=== PATIENT | female | born 1985 | race Caucasian/White ===

== ENCOUNTER → 2017-09-07 | Outpatient (CLI) | payer OTHER, BC ==
[2017-09-07 10:07] LABS: HCT 39.8 % (34.0-46.0); HGB 12.8 gm/dL (11.4-16.0); MCH 31.3 pg (25.0-35.0); MCHC 32.1 g/dL (31.0-37.0); MCV 97.5 fL (80.0-100.0); Mean Platelet Volume 6.4; Platelet Count 363 k/uL (150-450); RBC 4.08 m/uL (3.80-5.40); RDW 12.5 % (11.5-15.5); WBC 8.5 k/uL (3.8-10.6)
== END | disposition home or self-care (01) ==
LOC: LABWHC1 09:01
PROVIDERS: ATTEND Obstetrics & Gynecology
DX: Z34.82 Encounter for supervision of other normal pregnancy, second trimester (principal)
CPT/HCPCS: 36415; 82950; 85027

== ENCOUNTER → 2017-09-11 | Outpatient (CLI) | payer OTHER, BC ==
[2017-09-11 12:59] LABS: Glucose 3 Hour, Gest 115 mg/dL
== END | disposition home or self-care (01) ==
LOC: LABWHC1 08:55
PROVIDERS: ATTEND Obstetrics & Gynecology
DX: O99.810 Abnormal glucose complicating pregnancy (principal); Z3A.00 Weeks of gestation of pregnancy not specified
CPT/HCPCS: 36415; 82951; 82952

== ENCOUNTER 2017-09-26 10:42 | Outpatient (CLI) | payer OTHER, BC ==
[2017-09-26 11:16] VITALS: BP 116/67; PULSE 109; RESP 18; TEMP 97
[2017-09-26 11:17] LABS: Appearance,Urine Cloudy (Clear); Bilirubin,Urine Negative (Negative); Blood,Urine Negative (Negative); Color,Urine Yellow; Glucose,Urine (UA) Negative (Negative); Ketones,Urine 2+ (Negative); Leukocyte Esterase,Urine Small (Negative); Mucus,Urine Moderate /hpf; PH, Urine 6.5 (5.0-8.0); Protein,Urine Trace (Negative); RBC,Urine 1 /hpf (0-5); Specific Gravity,Urine 1.021 (1.001-1.035); Squamous Epithelial Cell,Urine 18 /hpf (0-4); Urobilinogen,Urine <2.0 mg/dL (<2.0); WBC,Urine 4 /hpf (0-5)
--- NOTE | 2017-09-26 16:53 | P.MSEPDOC ---
Presenting Problems - Arrival Data Date of Arrival on Unit: 09/26/17 Time of Arrival on Unit: 10:40 Mode of Transport: Ambulatory - Complaint OB-Reason for Admission/Chief Complaint: Headache, Visual Disturbances, Observation/Evaluation, Elevated Blood Pressure Comment: high BP at work with vision changes and headache, tingling hands, symptoms resolved at present other than mild headache 10/06 Medical History - Information : 3 Para: 2 Term: 2 : 0 Abortions: Spontaneous or Elective: 0 Number of Living Children: 2 - Gestational Age Gestational Age by NIMO (wks/days): 28 Weeks and 4 Days - History Comment: term vag deliveries x 2 Review of Systems - Review of Systems Constitutional: No problems Breast: No problems ENT: No problems Cardiovascular: No problems Respiratory: No problems Gastrointestinal: No problems Genitourinary: No problems Musculoskeletal: No problems Neurological: No problems Skin: No problems Vital Signs - Temperature Temperature: 97 F Temperature Source: Temporal Artery Scan - Pulse Left Sitting Brachial Pulse Rate: 109 Pulse Assessment Method: Automatic Cuff - Respirations Respiratory Rate: 18 Oxygen Delivery Method: Room Air O2 Sat by Pulse Oximetry: 99 - Blood Pressure Left Arm Sitting Blood Pressure: 116/67 Blood Pressure Mean: 83 Blood Pressure Source: Automatic Cuff Medical Screen Scoring (Pre) - Cervical Exam Dilation: Exam Deferred Effacement: Exam Deferred - Uterine Contractions Frequency: N/A Duration: N/A Intensity: N/A - Maternal Vital Signs Maternal Temperature: N/A Maternal Blood Pressure: N/A Signs of Preeclampsia: Headache = 1 Maternal Respirations: N/A - Pain Assessment Pain Location and Character: Head Pain Scale Used: Numeric (1 - 10) Pain Intensity: 3 Pain Description: Aching - Maternal Trauma Maternal Trauma: N/A - Assessment Baseline FHR: 135 Heart Rate - NICHD Category: Category I (Normal) = 0 NST: Reactive Position: N/A Station: N/A - Total Score Total Score (Pre): 1 - Level of Risk Level of Risk: Low (0-5) Physician Notification (Pre) - Physician Notified Physician Notified Date: 09/26/17 Physician Notified Time: 11:00 Physician/Practitioner Notifed:: Dr Srinivasan Spoke With: dr Srinivasan New Order Received: Yes - Notification Comment Comment: Send UA, may be discharged home if results WNL Physician Notification (Post) - Physician Notified Physician Notified Date: 09/26/17 Physician Notified Time: 11:25 Physician/Practitioner Notified:: Dr Srinivasan Spoke With: Dr Srinivasan New Order Received: Yes - Notification Comment Comment: Discharge home, increase po fluids. Pt to return with continued or increased symptoms. Disposition - Disposition OB Disposition: Discharge to home Discharge Date: 09/26/17 Discharge Time: 11:33 I agree with the RN Medical Screening Exam: Yes Risk & Benefit of care provided described in d/c instruction: Yes Diagnosis: OTHER SPECIFIED COMPLICATIONS OF LABOR AND DELIVERY
== END 2017-09-26 11:33 | disposition home or self-care (01) ==
LOC: FBPOP 10:42
PROVIDERS: ATTEND Obstetrics & Gynecology
DX: O26.893 Other specified pregnancy related conditions, third trimester (principal); H53.9 Unspecified visual disturbance; R51 Headache; R03.0 Elevated blood-pressure reading, without diagnosis of hypertension; Z3A.28 28 weeks gestation of pregnancy
CPT/HCPCS: 59025; 81001; 99215

== ENCOUNTER 2017-10-08 12:07 | Outpatient (CLI) | payer OTHER, BC ==
[2017-10-08 13:08] VITALS: RESP 16; TEMP 96.8
[2017-10-08 13:34] LABS: Basophils % (A) 0 %; Eosinophils # (A) 0.5 k/uL (0-0.7); Eosinophils % (A) 5 %; HCT 33.7 % (34.0-46.0); HGB 11.7 gm/dL (11.4-16.0); Lymphocytes # (A) 1.3 k/uL (1.0-4.8); Lymphocytes % (A) 12 %; MCH 30.8 pg (25.0-35.0); MCHC 34.9 g/dL (31.0-37.0); Mean Platelet Volume 6.5; Monocytes # (A) 0.5 k/uL (0-1.0); Monocytes % (A) 5 %; Neutrophils # (A) 8.1 k/uL (1.3-7.7); Neutrophils % (A) 76 %; Platelet Count 363 k/uL (150-450); RBC 3.81 m/uL (3.80-5.40); RDW 12.6 % (11.5-15.5); WBC 10.6 k/uL (3.8-10.6)
[2017-10-08 13:35] LABS: ALT 21 U/L (9-52); AST 22 U/L (14-36); Blood Urea Nitrogen 7 mg/dL (7-17); LDH 411 U/L (313-618); Uric Acid 3.5 mg/dL (3.7-7.4)
[2017-10-08 13:42] LABS: MCV 88.4 fL (80.0-100.0)
[2017-10-08 13:58] LABS: Appearance,Urine Cloudy (Clear); Bacteria,Urine Rare /hpf; Bilirubin,Urine Negative (Negative); Blood,Urine Negative (Negative); Color,Urine Yellow; Glucose,Urine (UA) Negative (Negative); Ketones,Urine Negative (Negative); Leukocyte Esterase,Urine Negative (Negative); Mucus,Urine Occasional /hpf; Nitrite,Urine Negative (Negative); Protein,Urine Negative (Negative); RBC,Urine 1 /hpf (0-5); Specific Gravity,Urine 1.016 (1.001-1.035); Squamous Epithelial Cell,Urine 8 /hpf (0-4); Urobilinogen,Urine <2.0 mg/dL (<2.0); WBC,Urine 1 /hpf (0-5)
[2017-10-08 14:04] VITALS: BP 119/69; PULSE 99
--- NOTE | 2017-10-09 06:11 | P.MSEPDOC ---
Presenting Problems - Arrival Data Date of Arrival on Unit: 10/08/17 Time of Arrival on Unit: 12:07 Mode of Transport: Ambulatory - Complaint OB-Reason for Admission/Chief Complaint: Headache, Elevated Blood Pressure Comment: headache and bp 138/90 while at work this am Medical History - Information : 3 Para: 2 Term: 2 : 0 Abortions: Spontaneous or Elective: 0 Number of Living Children: 2 - Gestational Age Gestational Age by NIMO (wks/days): 30 Weeks and 2 Days Review of Systems - Review of Systems Constitutional: No problems Breast: No problems ENT: No problems Cardiovascular: No problems Respiratory: No problems Gastrointestinal: No problems Genitourinary: No problems Musculoskeletal: No problems Neurological: No problems Skin: No problems Vital Signs - Temperature Temperature: 96.8 F Temperature Source: Temporal Artery Scan - Pulse Right Sitting Pulse Rate: 99 Pulse Assessment Method: Automatic Cuff - Respirations Respiratory Rate: 16 Oxygen Delivery Method: Room Air - Blood Pressure Right Arm Blood Pressure: 119/69 Blood Pressure Mean: 85 Blood Pressure Source: Automatic Cuff Medical Screen Scoring (Pre) - Cervical Exam Dilation: Exam Deferred Effacement: Exam Deferred - Maternal Vital Signs Maternal Temperature: N/A Maternal Blood Pressure: N/A Signs of Preeclampsia: Headache = 1 Maternal Respirations: N/A - Pain Assessment Pain Location and Character: Head Pain Scale Used: Numeric (1 - 10) Pain Intensity: 3 Pain Description: *Acute Pain Frequency: Intermittent Pain Duration Units: Hours Pain Behavior: Vocalization - Maternal Trauma Maternal Trauma: N/A - Assessment Baseline FHR: 125 Heart Rate - NICHD Category: Category I (Normal) = 0 NST: Reactive Position: N/A Station: N/A - Total Score Total Score (Pre): 1 - Level of Risk Level of Risk: Low (0-5) Physician Notification (Pre) - Physician Notified Physician Notified Date: 10/08/17 Physician Notified Time: 12:51 Physician/Practitioner Notifed:: Zarina Mckeon Order Received: Yes ([facility] labs) Medical Screen Scoring (Post) - Cervical Exam Dilation: Exam Deferred Effacement: Exam Deferred - Uterine Contractions Frequency: N/A - Maternal Vital Signs Maternal Temperature: N/A Maternal Blood Pressure: N/A Signs of Preeclampsia: N/A Maternal Respirations: N/A - Assessment Heart Rate: 125 Heart Rate - NICHD Category: Category I (Normal) = 0 NST: Reactive Position: N/A Station: N/A - Total Score Total Score (Post): 0 - Post Treatment Level of Risk Post Treatment Level of Risk: Low (0-5) Physician Notification (Post) - Physician Notified Physician Notified Date: 10/08/17 Physician Notified Time: 14:02 Physician/Practitioner Notified:: Zarina Mckeon Order Received: Yes (d/c home) Disposition - Disposition OB Disposition: Discharge to home Discharge Date: 10/08/17 Discharge Time: 14:03 I agree with the RN Medical Screening Exam: Yes Risk & Benefit of care provided described in d/c instruction: Yes Diagnosis: HEADACHE (Patient had a evaluation for concerns of hypertension. No evidence of hypertension and preeclampsia labs were all normal. No evidence of maternal or compromise.)
== END 2017-10-08 14:01 | disposition home or self-care (01) ==
LOC: FBPOP 12:07
PROVIDERS: ATTEND Obstetrics & Gynecology
DX: O99.89 Other specified diseases and conditions complicating pregnancy, childbirth and the puerperium (principal); R51 Headache; Z3A.30 30 weeks gestation of pregnancy
CPT/HCPCS: 59025; 81001; 82565; 83615; 84450; 84460; 84520; 84550; 85025; 99215

== ENCOUNTER 2017-12-11 21:15 | Inpatient (IN) | payer OTHER, BC ==
[~2017-12-11 21:15] MED LIST: BUPIVACAINE (PF) 0.25% 30 ML VIAL ONE; SODIUM CHLORIDE 0.9% 100 ML BAG ONE; fentaNYL (PF) 50 MCG/ML 5 ML AMP ONE
[2017-12-11] MEDS ORDERED: OXYTOCIN 10 UNIT/ML 1 ML VIAL IM PRN (21:29)
[2017-12-11] MEDS ORDERED: METHYLERGONOVINE 0.2 MG/ML 1 ML AMP IM PRN (21:29)
[2017-12-11] MEDS ORDERED: LIDOCAINE 1% (PF) 10 MG/ML (30 ML SDV) SQ PRN (21:29)
[2017-12-11] MEDS ORDERED: CARBOPROST TROMETHAMINE 250 MCG/ML 1 ML AMP IM PRN (21:29)
[2017-12-11] MEDS ORDERED: TERBUTALINE 1 MG/ML VIAL SQ PRN (21:29)
[2017-12-11] MEDS ORDERED: OXYTOCIN 20 UNITS/1000 ML NS 1,000 ML IV SCH (21:30)
[2017-12-11] MEDS ORDERED: CLINDAMYCIN 900 MG in DEXTROSE 5% IN WATER 50 ML IVPB STA ×2 (21:33)
[2017-12-11] MEDS: LACTATED RINGERS 1,000 ML IV SCH (22:09)
[2017-12-11 23:05] VITALS: RESP 16
[2017-12-11 23:19] LABS: Basophils % (A) 0 %; Eosinophils # (A) 0.4 k/uL (0-0.7); Eosinophils % (A) 5 %; HCT 36.9 % (34.0-46.0); HGB 12.2 gm/dL (11.4-16.0); Lymphocytes # (A) 1.4 k/uL (1.0-4.8); Lymphocytes % (A) 17 %; MCH 28.8 pg (25.0-35.0); MCV 87.5 fL (80.0-100.0); Monocytes # (A) 0.5 k/uL (0-1.0); Monocytes % (A) 6 %; Neutrophils # (A) 5.7 k/uL (1.3-7.7); Neutrophils % (A) 71 %; Platelet Count 335 k/uL (150-450); RBC 4.22 m/uL (3.80-5.40); RDW 14.1 % (11.5-15.5); WBC 8.1 k/uL (3.8-10.6)
[2017-12-12] MEDS ORDERED: BUTORPHANOL 1 MG/ML 1 ML VIAL IV PRN (03:53)
[2017-12-12] MEDS ORDERED: CLINDAMYCIN 900 MG in DEXTROSE 5% IN WATER 50 ML IVPB SCH ×2 (05:45)
[2017-12-12] MEDS: LACTATED RINGERS 1,000 ML IV SCH (05:56)
--- NOTE | 2017-12-12 06:28 | P.HPOB ---
History of Present Illness H&P Date: 12/12/17 Chief Complaint: Leaking of fluid. This patient is a pleasant 32-year-old 3 para 2 female estimated date of confinement 12/15/2017 estimated gestational age 39-4/7 weeks gestation who is admitted to labor and delivery with spontaneous rupture membranes last evening at approximately 2015 hrs. Patient is admitted by Dr. Chisholm at that time. care has been uncomplicated. She did have concerns at 30 weeks for elevated blood pressures at work however we never were able to document any hypertension in the hospital or in the office and blood pressures have been normal. Patient did have a positive group B strep culture started on antibiotics last evening and was given Pitocin at approximately 2 AM for augmentation. Review of Systems Genitourinary: Reports Menstruation: Reports amenorrhea Past Medical History Past Medical History: Hypertension Additional Past Medical History / Comment(s): Patient has been given a diagnosis of hypertension but no treatment. History of Any Multi-Drug Resistant Organisms: None Reported Additional Past Surgical History / Comment(s): oral implant Past Anesthesia/Blood Transfusion Reactions: No Reported Reaction Past Psychological History: No Psychological Hx Reported Smoking Status: Never smoker Past Alcohol Use History: None Reported Past Drug Use History: None Reported - Past Family History Mother Family Medical History: Hypertension Father Family Medical History: Hypertension Medications and Allergies Home Medications Medication Instructions Recorded Confirmed Type Pnv No.95/Ferrous Fum/Folic AC 1 tab PO DAILY 10/08/17 10/08/17 History [ Multivitamin Tablet] Allergies Allergy/AdvReac Type Severity Reaction Status Date / Time Penicillins Allergy Rash/Hives Verified 12/11/17 21:29 Exam - Vital Signs Vital signs: Vital Signs Temp Pulse Resp BP Pulse Ox 12/11/17 22:00 97.3 F L 100 16 127/78 100 Intake and Output 12/11/17 12/11/17 12/12/17 14:59 22:59 06:59 Intake Total 1100 Balance 1100 Intake: Intake, IV Titration 1100 Amount Clindamycin 900 mg In 100 Dextrose 5% in Water 50 ml @ 100 mls/hr IVPB ONCE STA Rx#:[id number] Lactated Ringers 1,000 ml 1000 @ 125 mls/hr IV .Q8H MAUREEN Rx#:[id number] Other: # Voids 2 Weight 100.698 kg - OBG Physical Exam Abdomen: bowel sounds normal, no diffuse tenderness, no bruit present, no guarding noted, no hepatomegaly, no splenomegaly, no mass Vulva: both: normal Vagina: normal moisture, no discharge Cervix: no lesion, no discharge Uterus: enlarged (Fundal height is consistent with a term .) Results blood work shows she is O group B strep was positive. positive, rubella immune, RPR nonreactive, hepatitis B nonreactive, HIV nonreactive, toxoplasmosis IgG was positive consistent with a past infection, Glucola was 140 with a normal three-hour gtt. Patient's ultrasounds have been normal. Group B strep was positive. Result Diagrams: 12/11/17 22:00 Assessment and Plan Assessment: This is a pleasant 32-year-old 3 para 2 female 39-4/7 weeks gestation admitted to labor and delivery with spontaneous rupture membranes in early labor. Patient has positive group B strep culture. Patient is already on antibiotics and at this time making cervical change. Plan is anticipate vaginal delivery (1) Spontaneous rupture of amniotic membranes Current Visit: Yes Status: Acute Code(s): ZLL7083 - SNOMED Code(s): 091036572 (2) Group B streptococcal carriage complicating Current Visit: Yes Status: Acute Code(s): O99.820 - STREPTOCOCCUS B CARRIER STATE COMPLICATING SNOMED Code(s): 656808490208477 (3) Third trimester Current Visit: Yes Status: Acute Code(s): Z34.93 - ENCNTR FOR SUPRVSN OF NORMAL PREG, UNSP, THIRD TRIMESTER SNOMED Code(s): 20548056
[2017-12-12] MEDS ORDERED: WITCH HAZEL 1 EACH MED..PAD TOPICAL PRN (09:47)
[2017-12-12] MEDS ORDERED: LANOLIN CREAM 5 GM TUBE TOPICAL PRN (09:47)
[2017-12-12] MEDS ORDERED: diphenhydrAMINE 50 MG/ML 1 ML VIAL IVP PRN (09:47)
[2017-12-12] MEDS ORDERED: diphenhydrAMINE 25 MG CAP PO PRN (09:47)
[2017-12-12] MEDS ORDERED: OXYTOCIN 20 UNITS/1000 ML NS 1,000 ML IV SCH (09:47)
[2017-12-12] MEDS ORDERED: SIMETHICONE 80 MG CHEWABLE PO PRN (09:47)
[2017-12-12] MEDS ORDERED: BENZOCAINE/MENTHOL SPRAY 1 GM/SPRAY AEROSOL TOPICAL PRN (09:47)
[2017-12-12] MEDS ORDERED: ZOLPIDEM 5 MG TAB PO PRN (09:47)
[2017-12-12] MEDS ORDERED: BISACODYL 10 MG SUPP RECTAL PRN (09:47)
[2017-12-12] MEDS ORDERED: HYDROCORTISONE 2.5% RECTAL CREAM 30 GM TUBE RECTAL PRN (09:47)
[2017-12-12] MEDS ORDERED: ACETAMINOPHEN TAB 325 MG TAB PO PRN (09:47)
[2017-12-12] MEDS: SENNOSIDES-DOCUSATE SODIUM 1 EACH TAB PO SCH ×2 (11:09→19:46)
--- NOTE | 2017-12-12 12:28 | P.PROBDLV ---
Vaginal Delivery Note - . Vaginal Delivery Note: Normal vaginal delivery viable female Apgars 9 and 9 delivery time is 0926 hours. Please see dictated H&P for intimate details of this patient's admission. Brief summary this is a pleasant 32-year-old 3 para 2 female 39-4/7 weeks gestation who is admitted to labor and delivery with complaints of gush of fluid last evening. Patient started on clindamycin for positive group B strep culture. Patient's labor is augmented at approximately 2:00 this morning. Patient thereafter begins to progress and does get an epidural at 5 cm dilated. Patient's labor quickly progresses thereafter and she gets to complete. Patient pushes the head to the perineum the posterior perineum was supported. We have controlled delivery of the 's head over the intact perineum. Mouth and nares are bulb suctioned. There is a nuchal cord which is reduced. With gentle downward traction we then have deliver the anterior and posterior shoulder and rest this infant's body. This is a vigorous viable female Apgars are 9 and 9 delivery time is 0926 hours. After delivery of the infant the is late on the mother's abdomen. After the cord is done pulsating is doubly clamped and then cut. Placenta is then spontaneously delivered intact. Estimated blood loss is 200 mL. Inspection of perineum shows a small first-degree posterior laceration is repaired with 3-0 Vicryl in the usual fashion. Excellent reapproximation is noted. Infant and mother are stable delivery room. There are no complications. All counts are correct 3.
[2017-12-12] MEDS: IBUPROFEN 600 MG TAB PO PRN (19:46)
[2017-12-13 01:59] VITALS: BP 132/86; PULSE 89; TEMP 98.4
--- NOTE | 2017-12-13 05:59 | P.PNOBGVD ---
Subjective - Subjective Patient reports: Reports appetite normal, Reports voiding normally, Reports pain well controlled, Reports ambulating normally : doing well Objective - Latest Vital Signs Latest vital signs: Vital Signs Temp Pulse Resp BP Pulse Ox 12/13/17 00:00 98.4 F 89 16 132/86 12/12/17 20:00 98.2 F 109 H 16 139/74 12/12/17 16:00 98.5 F 112 H 16 138/81 12/12/17 12:00 97.8 F 98 16 132/76 12/12/17 11:33 98.1 F 101 H 16 136/73 12/12/17 11:03 96.8 F L 103 H 16 136/73 12/12/17 10:33 97.0 F L 97 16 140/71 98 12/12/17 10:18 102 H 16 133/58 98 12/12/17 10:03 114 H 145/70 12/12/17 09:48 98.3 F 107 H 16 144/77 12/12/17 09:33 98.2 F 109 H 16 133/71 Intake and Output 12/12/17 12/12/17 12/13/17 14:59 22:59 06:59 Output Total 700 Balance -700 Output: Urine 550 Estimated Blood Loss 150 Other: # Voids 1 1 2 - Exam Lungs: bilateral: normal Chest: Normal S1, Normal S2 Extremities: Present: normal Abdomen: Present: normal appearance, soft Uterus: Present: normal, firm Assessment and Plan Assessment: Post day #1. Patient is resting without complaints and wishes to go home. Vital signs are stable and she is afebrile. Uterus is firm nontender and she is having normal lochia. My impression is that this is a normal course. Plan is to continue care discharge home later today (1) Spontaneous rupture of amniotic membranes Current Visit: Yes Status: Acute Code(s): CYP9256 - SNOMED Code(s): 018665313 (2) Group B streptococcal carriage complicating Current Visit: Yes Status: Acute Code(s): O99.820 - STREPTOCOCCUS B CARRIER STATE COMPLICATING SNOMED Code(s): 200623935348985 (3) Third trimester Current Visit: Yes Status: Acute Code(s): Z34.93 - ENCNTR FOR SUPRVSN OF NORMAL PREG, UNSP, THIRD TRIMESTER SNOMED Code(s): 84913363
--- NOTE | 2017-12-13 06:03 | P.DS ---
Providers Date of admission: 12/11/17 21:39 Expected date of discharge: 12/13/17 Attending physician: Chandu Srinivasan Primary care physician: Stated None - Discharge Diagnosis(es) (1) Spontaneous rupture of amniotic membranes Current Visit: Yes Status: Acute (2) Group B streptococcal carriage complicating Current Visit: Yes Status: Acute (3) Third trimester Current Visit: Yes Status: Acute Hospital Course: Please see dictated H&P for intimate details of this patient's admission. Brief summary this is a pleasant 32-year-old 3 para 2 female 39-4/7 weeks gestation admitted to labor and delivery with spontaneous rupture membranes. Patient had augmentation of labor also treatment for positive group B strep culture. She was on have a vaginal delivery viable female . Please see dictated delivery note. day #1 patient's felt to be stable for discharge home follow up with me in 6 weeks. Procedures: Normal spontaneous vaginal delivery. Patient Condition at Discharge: Good Plan - Discharge Summary New Discharge Prescriptions: New Ibuprofen [Motrin] 600 mg PO Q6HR PRN #40 tab PRN Reason: Mild Pain Or Fever >= 100.5 No Action Pnv No.95/Ferrous Fum/Folic AC [ Multivitamin Tablet] 1 tab PO DAILY Discharge Medication List Pnv No.95/Ferrous Fum/Folic AC [ Multivitamin Tablet] 1 tab PO DAILY 07/16 [History] Ibuprofen [Motrin] 600 mg PO Q6HR PRN #40 tab 12/13/17 [Rx] Follow up Appointment(s)/Referral(s): Chandu Srinivasan MD [STAFF PHYSICIAN] - 01/23/18 9:30 am Patient Instructions/Handouts: Vaginal Delivery (DC) Activity/Diet/Wound Care/Special Instructions: No intercourse or anything per vagina for 6 weeks. Please call if any fever, chills, excessive vaginal bleeding and/or abdominal pain. Discharge Disposition: HOME SELF-CARE
[2017-12-13] MEDS: IBUPROFEN 600 MG TAB PO PRN (08:51)
--- NOTE | 2017-12-13 10:42 | P.MSEPDOC ---
Presenting Problems - Arrival Data Date of Arrival on Unit: 12/11/17 Time of Arrival on Unit: 21:41 Mode of Transport: Wheelchair - Complaint OB-Reason for Admission/Chief Complaint: Rule Out SROM Comment: SROM clear fluid at 2014 Medical History - Information : 3 Para: 2 Term: 2 : 0 Abortions: Spontaneous or Elective: 0 Number of Living Children: 2 - Gestational Age Gestational Age by NIMO (wks/days): 39 Weeks and 4 Days - History Complications: GBS+ Review of Systems - Review of Systems Constitutional: No problems Breast: No problems ENT: No problems Cardiovascular: No problems Respiratory: No problems Gastrointestinal: No problems Genitourinary: No problems Musculoskeletal: No problems Neurological: No problems Skin: No problems Vital Signs - Temperature Temperature: 98.4 F Temperature Source: Oral - Pulse Right Pulse Rate: 89 Pulse Assessment Method: Automatic Cuff - Respirations Respiratory Rate: 16 Oxygen Delivery Method: Room Air - Blood Pressure Right Arm Blood Pressure: 132/86 Blood Pressure Mean: 101 Blood Pressure Source: Automatic Cuff Medical Screen Scoring (Pre) - Cervical Exam Dilation: 1-3 cm = 1 Membranes: Ruptured = 3 - Uterine Contractions Frequency: N/A Duration: N/A Intensity: N/A - Maternal Vital Signs Maternal Temperature: N/A Maternal Blood Pressure: N/A Signs of Preeclampsia: N/A Maternal Respirations: N/A - Assessment Baseline FHR: 130 Heart Rate - NICHD Category: Category I (Normal) = 0 NST: Reactive - Total Score Total Score (Pre): 4 - Level of Risk Level of Risk: Low (0-5) Physician Notification (Pre) - Physician Notified Physician Notified Date: 12/11/17 Physician Notified Time: 21:41 Physician/Practitioner Notifed:: Dr Chisholm - Notification Comment Comment: Dr Chisholm called. Reported on hx, c/o, fhts, no cntrx, vag exam, GBS+, SROM. orders to admit, start abx, start pitcoin after4 hrs of abx. call with needs, epidural, pitocin started. Disposition - Disposition OB Disposition: Admit Transferred to:: st 7 Discharge Date: 12/11/17 Discharge Time: 21:41 I agree with the RN Medical Screening Exam: Yes Risk & Benefit of care provided described in d/c instruction: Yes Diagnosis: ENCOUNTER FOR FULL-TERM UNCOMPLICATED DELIVERY
[2017-12-13] MEDS: SENNOSIDES-DOCUSATE SODIUM 1 EACH TAB PO SCH (11:54)
== END 2017-12-13 13:32 | disposition home or self-care (01) | DRG 775 ==
LOC: FBPOP 21:15 → 4FBP 21:39
PROVIDERS: ADMIT Obstetrics & Gynecology; ATTEND Obstetrics & Gynecology
PROC: 10E0XZZ Delivery of Products of Conception, External Approach (ICD-10-PCS; principal; 2017-12-12)
PROC: 0HQ9XZZ Repair Perineum Skin, External Approach (ICD-10-PCS; 2017-12-12)
PROC: 00HU33Z Insertion of Infusion Device into Spinal Canal, Percutaneous Approach (ICD-10-PCS; 2017-12-12)
PROC: 3E0R3NZ Introduction of Analgesics, Hypnotics, Sedatives into Spinal Canal, Percutaneous Approach (ICD-10-PCS; 2017-12-12)
DX: O99.824 Streptococcus B carrier state complicating childbirth (principal); O70.0 First degree perineal laceration during delivery; O69.81X0 Labor and delivery complicated by cord around neck, without compression, not applicable or unspecified; O16.4 Unspecified maternal hypertension, complicating childbirth; Z3A.39 39 weeks gestation of pregnancy; Z82.49 Family history of ischemic heart disease and other diseases of the circulatory system; Z88.0 Allergy status to penicillin; Z37.0 Single live birth
CPT/HCPCS: 59025; 84112; 85025; 88307; 99213

== ENCOUNTER 2019-05-17 20:37 | Emergency (ER) | payer BC, OTHER ==
[2019-05-17] MEDS ORDERED: SODIUM CHLORIDE 0.9% 500 ML 500 ML IV ONE (20:57)
[2019-05-17 21:36] LABS: Basophils % (A) 0 %; Eosinophils # (A) 0.4 k/uL (0-0.7); Eosinophils % (A) 4 %; HCT 40.9 % (34.0-46.0); HGB 13.3 gm/dL (11.4-16.0); Lymphocytes # (A) 1.9 k/uL (1.0-4.8); Lymphocytes % (A) 19 %; MCH 31.3 pg (25.0-35.0); MCHC 32.6 g/dL (31.0-37.0); Mean Platelet Volume 6.6; Monocytes # (A) 0.5 k/uL (0-1.0); Monocytes % (A) 4 %; Neutrophils # (A) 7.2 k/uL (1.3-7.7); Neutrophils % (A) 71 %; Platelet Count 332 k/uL (150-450); RBC 4.26 m/uL (3.80-5.40); RDW 13.1 % (11.5-15.5); WBC 10.2 k/uL (3.8-10.6)
[2019-05-17 21:47] LABS: ALT 20 U/L (9-52); AST 22 U/L (14-36); African American GFR (CKD) >90 (>60 ml/min/1.73 sqM); Albumin 3.8 g/dL (3.5-5.0); Alkaline Phosphatase 61 U/L (38-126); Anion Gap 8 mmol/L; Blood Urea Nitrogen 9 mg/dL (7-17); Calcium 9.4 mg/dL (8.4-10.2); Carbon Dioxide 22 mmol/L (22-30); Chloride 105 mmol/L (98-107); Glucose 88 mg/dL (74-99); Non-African American GFR(CKD) >90 (>60 ml/min/1.73 sqM); Sodium 135 mmol/L (137-145); Total Bilirubin 0.3 mg/dL (0.2-1.3); Total Protein 6.7 g/dL (6.3-8.2)
--- NOTE | 2019-05-17 22:27 | US ---
EXAMINATION TYPE: Transabdominal DATE OF EXAM: 05/17/2019 10:10 PM COMPARISON: NONE CLINICAL HISTORY: pain. Bleeding. EXAM PERFORMED: Transabdominal (TA) EXAM MEASUREMENTS: GESTATIONAL AGE / DATING Physician Established: (12 weeks/3 days) EDC: 11/26/2019 Dates by LMP: (12 weeks/3 days) EDC: 11/26/2019 Dates by First Scan: No previous this is first scan Dates by Current Scan for: (13 weeks/3 days) EDC: 11/19/2019 MATERNAL ANATOMY Uterus: 15.2 x 9.5 x 11.1 cm Right Ovary: Obscured by bowel gas. Left Ovary: Obscured by bowel gas. Post CDS / Adnexa: wnl Presence of free fluid: no Presence of corpus luteal cyst: no Presence of subchorionic bleed: Possible hypoechoic area seen near cervix measuring 2.7 x 1.4 x 3.0cm . GESTATION / SURVEY CRL: 7.26cm (13 weeks/3 days) Heart Rate: 163 bpm Rhythm: Normal IMPRESSION: The ultrasound gestational age is 13 weeks and 3 days according to the measurements there is 2.7 x 1. 4 cm hypoechoic area near the cervix that could be a small perigestational hemorrhage and blood clot.
[2019-05-17 22:30] LABS: HCG,Quantitative Serum 42411.1 mIU/mL
--- NOTE | 2019-05-17 22:43 | ED ---
Female Urogenital HPI - General Chief complaint: Vaginal Bleeding Stated complaint: 12 wks , bleeding Time Seen by Provider: 05/17/19 20:55 Source: patient Mode of arrival: ambulatory Limitations: no limitations - History of Present Illness Initial comments: 34 female presenting to the ER for evaluation of bleeding in . Patient states she began developing mild to moderate vaginal bleeding today she states it is bright red. Patient states his symptoms subsided however she just used the bathroom prior to history taking there was a moderate amount of bright red blood. Denies pain. Denies discharge or any other concerns. Remaining review systems negative. Patient states she has established [facility] care with follow-up scheduled for Sunday. Patient denies any other concerns or complaints. Patient appears well upon arrival. - Related Data Home Medications Medication Instructions Recorded Confirmed Pnv No.95/Ferrous Fum/Folic AC 1 tab PO DAILY 10/08/17 10/08/17 [ Multivitamin Tablet] Previous Rx's Medication Instructions Recorded Ibuprofen [Motrin] 600 mg PO Q6HR PRN #40 tab 12/13/17 Allergies Allergy/AdvReac Type Severity Reaction Status Date / Time Penicillins Allergy Rash/Hives Verified 05/17/19 20:43 Review of Systems ROS Statement: Those systems with pertinent positive or pertinent negative responses have been documented in the HPI. ROS Other: All systems not noted in ROS Statement are negative. Past Medical History Past Medical History: Hypertension Additional Past Medical History / Comment(s): hypertension in , History of Any Multi-Drug Resistant Organisms: None Reported Additional Past Surgical History / Comment(s): oral implant, Past Anesthesia/Blood Transfusion Reactions: No Reported Reaction Past Psychological History: No Psychological Hx Reported Smoking Status: Never smoker Past Alcohol Use History: None Reported Past Drug Use History: None Reported - Past Family History Mother Family Medical History: Hypertension Father Family Medical History: Hypertension General Exam - General Exam Comments Initial Comments: General: The patient is awake and alert, in no distress, and does not appear acutely ill. Eye: +3 mm pupils are equal, round and reactive to light, extra-ocular movements are intact. No nystagmus. There is normal conjunctiva bilaterally. No signs of icterus. Ears, nose, mouth and throat: There are moist mucous membranes and no oral lesions. Neck: The neck is supple, there is no tenderness or JVD. Cardiovascular: There is a regular rate and rhythm. No murmur, rub or gallop is appreciated. Respiratory: Lungs are clear to auscultation, respirations are non-labored, breath sounds are equal. No wheezes, stridor, rales, or rhonchi. Gastrointestinal: Soft, non-distended, non-tender abdomen without masses or organomegaly noted. There is no rebound or guarding present. No CVA tenderness. Bowel sounds are unremarkable.Pelvic refused. Musculoskeletal: Normal ROM, no tenderness. Strength 5/5. Sensation intact. Radial pulses equal bilaterally 2+. Neurological: A&O x 3. CN II-XII intact grossly, There are no obvious motor or sensory deficits. Coordination appears grossly intact. Speech is normal. Skin: Skin is warm and dry and no rashes or lesions are noted. Psychiatric: Cooperative, appropriate mood & affect, normal judgment. Limitations: no limitations Course Vital Signs 05/17/19 05/17/19 20:38 23:06 Temperature 97.8 F 98.1 F Pulse Rate 84 87 Respiratory 17 18 Rate Blood Pressure 128/89 129/78 O2 Sat by Pulse 98 99 Oximetry Medical Decision Making - Medical Decision Making 34-year-old female presents for vaginal bleeding and Prevacid. Patient O+. Ultrasound revealed viable intrauterine with appropriate heart rate. There is evidence of gestational sac hemorrhage versus clot. Patient states she has had known tear was told to expect bleeding during the by her [facility]. Patient is hemodynamically stable appearing well no pain. At this time I do feel patient is stable for discharge with outpatient [facility] follow-up on Sunday as scheduled. Return pararmeters were discussed at length patient verbalized understanding case discussed with a provider and patient was discharged appearing well. - Lab Data Result diagrams: 05/17/19 21:15 05/17/19 21:15 Lab Results 05/17/19 05/17/19 05/17/19 Range/Units 21:15 21:15 21:15 WBC 10.2 (3.8-10.6) k/uL RBC 4.26 (3.80-5.40) m/uL Hgb 13.3 (11.4-16.0) gm/dL Hct 40.9 (34.0-46.0) % MCV 96.0 (80.0-100.0) fL MCH 31.3 (25.0-35.0) pg MCHC 32.6 (31.0-37.0) g/dL RDW 13.1 (11.5-15.5) % Plt Count 332 (150-450) k/uL Neutrophils % 71 % Lymphocytes % 19 % Monocytes % 4 % Eosinophils % 4 % Basophils % 0 % Neutrophils # 7.2 (1.3-7.7) k/uL Lymphocytes # 1.9 (1.0-4.8) k/uL Monocytes # 0.5 (0-1.0) k/uL Eosinophils # 0.4 (0-0.7) k/uL Basophils # 0.0 (0-0.2) k/uL Sodium 135 L (137-145) mmol/L Potassium 4.0 (3.5-5.1) mmol/L Chloride 105 (98-107) mmol/L Carbon Dioxide 22 (22-30) mmol/L Anion Gap 8 mmol/L BUN 9 (7-17) mg/dL Creatinine 0.44 L (0.52-1.04) mg/dL Est GFR (CKD-EPI)AfAm >90 (>60 ml/min/1.73 sqM) Est GFR (CKD-EPI)NonAf >90 (>60 ml/min/1.73 sqM) Glucose 88 (74-99) mg/dL Calcium 9.4 (8.4-10.2) mg/dL Total Bilirubin 0.3 (0.2-1.3) mg/dL AST 22 (14-36) U/L ALT 20 (9-52) U/L Alkaline Phosphatase 61 (38-126) U/L Total Protein 6.7 (6.3-8.2) g/dL Albumin 3.8 (3.5-5.0) g/dL HCG, Quant 96262.1 mIU/mL Blood Type O Positive Blood Type Recheck O Pos Bld Type Recheck Status No Antibody Screen NEGATIVE Spec Expiration Date 05/20/20192314 Disposition Clinical Impression: Vaginal bleeding in Disposition: HOME SELF-CARE Condition: Good Instructions (If sedation given, give patient instructions): Threatened Miscarriage (ED) Additional Instructions: Please use medication as discussed. Please follow-up with OBGYN on Sunday as scheduled, if bleeding increases worsening or is persistent return to the ER. Pelvic rest recommended- refrain from sex. Please return to emergency room if the symptoms increase or worsen or for any other concerns. Is patient prescribed a controlled substance at d/c from ED?: No Referrals: Efren Crooks DO [Primary Care Provider] - 1-2 days Chandu Srinivasan MD [STAFF PHYSICIAN] - 05/20/19 Time of Disposition: 22:41
[2019-05-17 23:07] VITALS: BP 129/78; PULSE 87; RESP 18; TEMP 98.1
== END 2019-05-17 23:07 | disposition home or self-care (01) ==
LOC: EC 20:37
DX: O20.9 Hemorrhage in early pregnancy, unspecified (principal); O16.1 Unspecified maternal hypertension, first trimester; Z3A.12 12 weeks gestation of pregnancy; Z88.0 Allergy status to penicillin
CPT/HCPCS: 36415; 76801; 80053; 84702; 85025; 86850; 86900; 86901; 96360; 99284

== ENCOUNTER 2019-11-14 11:05 | Inpatient (IN) | payer OTHER ==
[2019-11-14 11:35] LABS: Basophils % (A) 0 %; Eosinophils # (A) 0.2 k/uL (0-0.7); Eosinophils % (A) 2 %; HCT 39.6 % (34.0-46.0); HGB 12.7 gm/dL (11.4-16.0); Lymphocytes # (A) 1.3 k/uL (1.0-4.8); Lymphocytes % (A) 17 %; MCH 28.4 pg (25.0-35.0); MCV 88.8 fL (80.0-100.0); Mean Platelet Volume 7.3; Monocytes # (A) 0.3 k/uL (0-1.0); Monocytes % (A) 4 %; Neutrophils # (A) 5.5 k/uL (1.3-7.7); Neutrophils % (A) 74 %; Platelet Count 350 k/uL (150-450); RBC 4.47 m/uL (3.80-5.40); RDW 14.2 % (11.5-15.5); WBC 7.5 k/uL (3.8-10.6)
[2019-11-14 11:43] LABS: Appearance,Urine Cloudy (Clear); Bacteria,Urine Many /hpf; Bilirubin,Urine Negative (Negative); Blood,Urine Negative (Negative); Color,Urine Yellow; Glucose,Urine (UA) Negative (Negative); Ketones,Urine Negative (Negative); Leukocyte Esterase,Urine Trace (Negative); Mucus,Urine Many /hpf; Nitrite,Urine Positive (Negative); Protein,Urine 1+ (Negative); RBC,Urine 1 /hpf (0-5); Specific Gravity,Urine 1.028 (1.001-1.035); Squamous Epithelial Cell,Urine 9 /hpf (0-4); Urobilinogen,Urine <2.0 mg/dL (<2.0); WBC,Urine 8 /hpf (0-5)
[2019-11-14 11:47] LABS: Uric Acid 4.4 mg/dL (3.7-7.4)
[2019-11-14 11:48] LABS: Protein/Creatinine Ratio,Urine 0.036
[2019-11-14 12:04] LABS: INR 0.9 (<1.2); Partial Thromboplastin Time 22.3 sec (22.0-30.0); Prothrombin Time 9.3 sec (9.0-12.0)
[2019-11-14] MEDS ORDERED: OXYTOCIN 10 UNIT/ML 1 ML VIAL IM PRN (12:57)
[2019-11-14] MEDS ORDERED: METHYLERGONOVINE 0.2 MG/ML 1 ML AMP IM PRN (12:57)
[2019-11-14] MEDS ORDERED: TERBUTALINE 1 MG/ML VIAL SQ PRN (12:57)
[2019-11-14] MEDS ORDERED: CARBOPROST TROMETHAMINE 250 MCG/ML 1 ML AMP IM PRN (12:57)
[2019-11-14] MEDS ORDERED: LIDOCAINE 0.5% (PF) 5 MG/ML (50 ML SDV) SQ PRN (12:57)
[2019-11-14] MEDS ORDERED: OXYTOCIN 30 UNITS/500 ML NS 30 UNIT in SALINE 1 500ML.BAG IV SCH (13:00)
[2019-11-14] MEDS ORDERED: LACTATED RINGERS 1,000 ML IV SCH (13:00)
--- NOTE | 2019-11-14 13:35 | P.HPOB ---
History of Present Illness H&P Date: 11/14/19 Chief Complaint: Headache and hypertension. This patient is a pleasant 34-year-old 4 para 3 female estimated date of confinement 11/26/2019 estimated gestational age 38-2/7 weeks who presented to my office today for an OB visit and had complaints of a headache and had an elevated blood pressure 130/90. Patient sent to labor and delivery for evaluation and continued to have some mild blood pressure elevations 13 36/91 and 142/88. Since this patient is greater than 37 weeks I recommended that she proceed with delivery at this time for gestational hypertension. care is otherwise been uncomplicated. Review of Systems Ears, nose, mouth and throat: Reports headache Genitourinary: Reports Menstruation: Reports amenorrhea Past Medical History Past Medical History: Hypertension Additional Past Medical History / Comment(s): Patient has a past diagnosis of hypertension however has not been on any medications. History of Any Multi-Drug Resistant Organisms: None Reported Additional Past Surgical History / Comment(s): oral implant, Past Anesthesia/Blood Transfusion Reactions: No Reported Reaction Past Psychological History: No Psychological Hx Reported Smoking Status: Never smoker Past Alcohol Use History: None Reported Past Drug Use History: None Reported - Past Family History Mother Family Medical History: Hypertension Father Family Medical History: Hypertension Medications and Allergies Home Medications Medication Instructions Recorded Confirmed Type Pnv No.95/Ferrous Fum/Folic AC 1 tab PO DAILY 10/08/17 11/14/19 History [ Multivitamin Tablet] Allergies Allergy/AdvReac Type Severity Reaction Status Date / Time Penicillins Allergy Rash/Hives Verified 11/14/19 11:19 Exam Vital Signs Pulse BP 11/14/19 11:35 102 H 142/88 11/14/19 11:20 100 136/91 Intake and Output 11/13/19 11/14/19 11/14/19 22:59 06:59 14:59 Other: Weight 103.419 kg - OBG Physical Exam Abdomen: bowel sounds normal, no diffuse tenderness, no bruit present, no guarding noted, no hepatomegaly, no splenomegaly, no mass Vulva: both: normal Vagina: normal moisture, no discharge Cervix: Cervix is 2/80% -2 station vertex Uterus: enlarged (Fundal height is 39 cm) Results blood work shows she is O positive, rubella immune, RPR nonreactive, hepatitis B negative, HIV is negative, Glucola was abnormal with a normal three- hour gtt. Group B strep was negative but she has a history of positive group B strep with previous . Result Diagrams: 11/14/19 11:17 Abnormal Lab Results - Last 24 Hours (Table) 11/14/19 11/14/19 Range/Units 11:12 11:17 Fibrinogen 534 H (200-500) mg/dL Urine Appearance Cloudy H (Clear) Urine Protein 1+ H (Negative) Urine Nitrite Positive H (Negative) Ur Leukocyte Esterase Trace H (Negative) Urine WBC 8 H (0-5) /hpf Ur Squamous Epith Cells 9 H (0-4) /hpf Urine Bacteria Many H (None) /hpf Urine Mucus Many H (None) /hpf Assessment and Plan Assessment: This is a pleasant 34-year-old 4 para 3 female 38-2/7 weeks gestation admitted to labor and delivery for delivery secondary to gestational hypertension at this time there is no evidence of preeclampsia but due to the persistent blood pressure elevations we will proceed with current recommendations and plan on induction and delivery. Patient also has a history of positive group B strep with a previous other she was negative this therefore she will be given antibiotic prophylaxis. All the patient's questions been answered and she wishes to proceed with delivery at this time. (1) 38 weeks gestation of Current Visit: Yes Status: Acute Code(s): Z3A.38 - 38 WEEKS GESTATION OF Evon GIPSON SNOMED Code(s): 16619116 (2) Gestational hypertension Current Visit: Yes Status: Acute Code(s): O13.9 - GESTATIONAL HTN W/O SIGNIFICANT PROTEINURIA, UNSP TRIMESTER SNOMED Code(s): 703387450 (3) History of group B Streptococcus (GBS) infection Current Visit: Yes Status: Acute Code(s): Z86.19 - PERSONAL HISTORY OF OTHER INFECTIOUS AND PARASITIC DISEASES SNOMED Code(s): 147267334
[2019-11-14] MEDS ORDERED: ROPIVACAINE 5MG/ML 20ML VIAL ONE (16:08)
[2019-11-14] MEDS ORDERED: fentaNYL (PF) 50 MCG/ML 5 ML AMP ONE (16:08)
[2019-11-14] MEDS ORDERED: SODIUM CHLORIDE 0.9% 100 ML BAG ONE (16:08)
[2019-11-14] MEDS ORDERED: diphenhydrAMINE 50 MG/ML 1 ML VIAL IVP PRN (19:49)
[2019-11-14] MEDS ORDERED: ZOLPIDEM 5 MG TAB PO PRN (19:49)
[2019-11-14] MEDS ORDERED: LANOLIN CREAM 5 GM TUBE TOPICAL PRN (19:49)
[2019-11-14] MEDS ORDERED: WITCH HAZEL 1 EACH MED..PAD TOPICAL PRN (19:49)
[2019-11-14] MEDS ORDERED: SIMETHICONE 80 MG CHEWABLE PO PRN (19:49)
[2019-11-14] MEDS ORDERED: BISACODYL 10 MG SUPP RECTAL PRN (19:49)
[2019-11-14] MEDS ORDERED: HYDROCORTISONE 2.5% RECTAL CREAM 30 GM TUBE RECTAL PRN (19:49)
[2019-11-14] MEDS ORDERED: BENZOCAINE/MENTHOL SPRAY 1 GM/SPRAY AEROSOL TOPICAL PRN (19:49)
[2019-11-14] MEDS ORDERED: diphenhydrAMINE 25 MG CAP PO PRN (19:49)
--- NOTE | 2019-11-14 19:55 | P.PROBDLV ---
Vaginal Delivery Note - . Vaginal Delivery Note: Normal vaginal delivery viable male infant Apgars are 9 and 9 delivery time is 1930 hrs. Please see dictated H&P for intimate details of this patient's admission. Brief summary a pleasant 34-year-old 4 para 3 female 38-2/7 weeks admitted to labor and delivery from my office for elevated blood pressure. Patient's found to have persistent blood pressure elevations without evidence of preeclampsia. Per recommendations recommended proceed with delivery. Patient is to simmers dilated has artificial rupture membranes for clear fluid. Labor is induced with Pitocin per protocol. I did give her 1 dose of Ancef because of a history of positive strep with her previous . Patient does receive an epidural for pain control. Labor progresses quickly and she gets to complete with 1 push and pushes the head to the perineum. Posterior perineum was supported. We have controlled delivery of the infant's head over the intact perineum. Mouth and nares are bulb suctioned. With good maternal effort she then pushes and it is noted that there is a compound presentation with a hand posteriorly.. With maternal effort she delivers the posterior hand and shoulder and the rest of this infant's body. This is a vigorous viable male infant Apgars are 9 and 9 delivery time is 1930 hrs. has spontaneous respirations and good cry. Infant is late on the mother's abdomen. After the cord stopped pulsating is doubly clamped and cut appears to be trivascular. Placenta is then spontaneously delivered intact. Estimated blood loss approximately 150 mL. Inspection of perineum shows a superficial laceration of posterior perineum which is reapproximated with a [id number] stitch of 3-0 Vicryl. Excellent reapproximation is noted. All counts are correct 3. There are no complications. and mother are stable delivery room.
[2019-11-14] MEDS ORDERED: OXYTOCIN 20 UNITS/1000 ML NS 1,000 ML IV SCH (20:00)
[2019-11-14 20:15] VITALS: RESP 16
[2019-11-14] MEDS: SENNOSIDES-DOCUSATE SODIUM 1 EACH TAB PO SCH (22:22)
[2019-11-14] MEDS: IBUPROFEN 600 MG TAB PO PRN (23:11)
[2019-11-15] MEDS: ACETAMINOPHEN TAB 325 MG TAB PO PRN ×2 (01:47→11:14)
[2019-11-15] MEDS: IBUPROFEN 600 MG TAB PO PRN ×2 (08:07→14:52)
[2019-11-15] MEDS: SENNOSIDES-DOCUSATE SODIUM 1 EACH TAB PO SCH (08:07)
--- NOTE | 2019-11-15 08:23 | P.PNOBGVD ---
Subjective - Subjective Patient reports: Reports appetite normal, Reports voiding normally, Reports pain well controlled, Reports ambulating normally : doing well Objective - Latest Vital Signs Latest vital signs: Vital Signs Temp Pulse Resp BP Pulse Ox 11/15/19 08:00 97.0 F L 95 16 130/83 11/15/19 04:00 97.9 F 86 16 122/73 11/15/19 02:00 98.1 F 105 H 16 121/67 97 11/14/19 21:30 97.6 F 116 H 16 135/83 11/14/19 21:00 96 16 128/72 11/14/19 20:30 99 16 122/57 11/14/19 20:15 96 16 105/59 11/14/19 20:00 96 16 105/59 11/14/19 19:45 118 H 16 126/55 11/14/19 19:30 97.4 F L 110 H 16 104/49 100 11/14/19 11:35 102 H 142/88 11/14/19 11:20 100 136/91 Intake and Output 11/14/19 11/15/19 11/15/19 22:59 06:59 14:59 Output Total 100 Balance -100 Output: Estimated Blood Loss 100 Other: # Voids 1 1 2 # Bowel Movements 1 - Exam Lungs: bilateral: normal Chest: Normal S1, Normal S2 Extremities: Present: normal Abdomen: Present: normal appearance, soft Uterus: Present: normal, firm - Labs Labs: Abnormal Lab Results - Last 24 Hours (Table) 11/14/19 11/14/19 Range/Units 11:12 11:17 Fibrinogen 534 H (200-500) mg/dL Urine Appearance Cloudy H (Clear) Urine Protein 1+ H (Negative) Urine Nitrite Positive H (Negative) Ur Leukocyte Esterase Trace H (Negative) Urine WBC 8 H (0-5) /hpf Ur Squamous Epith Cells 9 H (0-4) /hpf Urine Bacteria Many H (None) /hpf Urine Mucus Many H (None) /hpf Assessment and Plan Assessment: day #1. Patient is resting without complaints and wishes to go home. Vital signs are stable she is afebrile. Uterus is firm nontender and she has normal lochia. My impression is a normal course. Plan is to continue routine care and discharge home later today. (1) 38 weeks gestation of Current Visit: Yes Status: Acute Code(s): Z3A.38 - 38 WEEKS GESTATION OF SNOMED Code(s): 68948197 (2) Gestational hypertension Current Visit: Yes Status: Acute Code(s): O13.9 - GESTATIONAL HTN W/O SIGNIFICANT PROTEINURIA, UNSP TRIMESTER SNOMED Code(s): 487435500 (3) History of group B Streptococcus (GBS) infection Current Visit: Yes Status: Acute Code(s): Z86.19 - PERSONAL HISTORY OF OTHER INFECTIOUS AND PARASITIC DISEASES SNOMED Code(s): 567715094
--- NOTE | 2019-11-15 08:28 | P.DS ---
Providers Date of admission: 11/14/19 12:18 Expected date of discharge: 11/15/19 Attending physician: Chandu Srinivasan Primary care physician: Stated None - Discharge Diagnosis(es) (1) 38 weeks gestation of Current Visit: Yes Status: Acute (2) Gestational hypertension Current Visit: Yes Status: Acute (3) History of group B Streptococcus (GBS) infection Current Visit: Yes Status: Acute Hospital Course: Please see dictated H&P for intimate details of this patient's admission. Brief summary this pleasant 34-year-old 4 para 3 female 38-2/7 weeks gestation admitted to labor and delivery for induction of labor due to gestational hypertension. Patient is admitted she quickly goes on to have a vaginal delivery viable male . Please see dictated delivery note. day #1 patient's felt be stable for discharge home follow up with me in 6 weeks. Procedures: Induction of labor and normal vaginal delivery Plan - Discharge Summary New Discharge Prescriptions: New Ibuprofen [Motrin] 600 mg PO Q6HR PRN #40 tab PRN Reason: Mild Pain Or Fever >= 100.5 No Action Pnv No.95/Ferrous Fum/Folic AC [ Multivitamin Tablet] 1 tab PO DAILY Discharge Medication List Pnv No.95/Ferrous Fum/Folic AC [ Multivitamin Tablet] 1 tab PO DAILY 10/08/17 [History] Ibuprofen [Motrin] 600 mg PO Q6HR PRN #40 tab 11/15/19 [Rx] Follow up Appointment(s)/Referral(s): Chandu Srinivasan MD [STAFF PHYSICIAN] - 6 Weeks Patient Instructions/Handouts: Vaginal Delivery (DC) Activity/Diet/Wound Care/Special Instructions: No intercourse or anything per vagina for 6 weeks. Please call if any fever, chills, excessive vaginal bleeding, and/or abdominal pain Discharge Disposition: HOME SELF-CARE
[2019-11-15 16:20] VITALS: BP 141/97; PULSE 91; TEMP 97.8
== END 2019-11-15 20:00 | disposition home or self-care (01) | DRG 807 ==
LOC: FBPOP 11:05 → 4FBP 12:18
PROVIDERS: ADMIT Obstetrics & Gynecology; ATTEND Obstetrics & Gynecology
PROC: 10E0XZZ Delivery of Products of Conception, External Approach (ICD-10-PCS; principal; 2019-11-14)
PROC: 0UQMXZZ Repair Vulva, External Approach (ICD-10-PCS; principal; 2019-11-14)
DX: O13.4 Gestational [pregnancy-induced] hypertension without significant proteinuria, complicating childbirth (principal); Z37.0 Single live birth; O70.9 Perineal laceration during delivery, unspecified; Z3A.38 38 weeks gestation of pregnancy; Z82.49 Family history of ischemic heart disease and other diseases of the circulatory system
CPT/HCPCS: 59025; 81001; 82570; 83615; 84156; 84450; 84460; 84550; 85025; 85384; 85610; 85730; 86850; 86900; 86901

== ENCOUNTER → 2022-10-30 | Outpatient (CLI) | payer BC ==
--- NOTE | 2022-10-30 16:34 | XR ---
EXAMINATION TYPE: XR abdomen 2V DATE OF EXAM: 10/30/2022 3:00 PM INDICATION: Patient age:Female; 37 years old; Reason for study: [id number] UPPER ABD PAIN; COMPARISON: 03/22/2010 TECHNIQUE: Two views of the abdomen were obtained. FINDINGS: The bowel gas pattern is nonspecific without dilated loops of small or large bowel. There i s no evidence for organomegaly or pneumoperitoneum. The osseous structures are intact. Pelvic phleb oliths are present. Fecal material and gas are demonstrated throughout the colon and rectum. IMPRESSION: Nonspecific bowel gas pattern without radiographic evidence for acute process.
== END | disposition home or self-care (01) ==
LOC: RADXRYALE 14:37
PROVIDERS: ATTEND Physician Assistant
DX: R10.10 Upper abdominal pain, unspecified (principal)
CPT/HCPCS: 74019